=== PATIENT | female | born 1995 | race Two or more races ===

== ENCOUNTER 2022-02-19 10:25 | Emergency (ER) | payer SELFPAY ==
[2022-02-19] MEDS ORDERED: Albuterol/Ipratropium 3.0-0.5 MG/3 ML Neb Soln NEB ONE (11:28)
[2022-02-19 11:46] LABS: CORONAVIRUS COVID-19 NAA NEGATIVE (NEGATIVE); INFLUENZA A NAA NEGATIVE (NEGATIVE); INFLUENZA B NAA NEGATIVE (NEGATIVE)
== END 2022-02-19 12:30 | disposition home or self-care (01) ==
LOC: MW.ED 10:25
DX: J40 Bronchitis, not specified as acute or chronic (principal); Z88.0 Allergy status to penicillin; Z88.8 Allergy status to other drugs, medicaments and biological substances; Z79.899 Other long term (current) drug therapy; Z20.822 Contact with and (suspected) exposure to COVID-19
CPT/HCPCS: 0240U; 71046; 81003; 81025; 93005; 99285; 93010; 99284; J7620-GY

== ENCOUNTER 2024-04-24 08:53 | Emergency (ER) | payer MEDICAID ==
[2024-04-24] MEDS ORDERED: Bacitracin Oint 1 GM U/D Packet TOP ONE (09:18)
[2024-04-24] MEDS: Bacitracin Oint 28.35 GM Tube TOP STA (09:38)
[2024-04-24] MEDS: Bacitracin Oint 28.35 GM Tube ONE (09:38)
== END 2024-04-24 09:44 | disposition home or self-care (01) ==
LOC: MW.ED 08:53
DX: T25.221A Burn of second degree of right foot, initial encounter (principal); F17.210 Nicotine dependence, cigarettes, uncomplicated; Z88.0 Allergy status to penicillin; Z88.8 Allergy status to other drugs, medicaments and biological substances; Z90.49 Acquired absence of other specified parts of digestive tract; X12.XXXA Contact with other hot fluids, initial encounter
CPT/HCPCS: 99283; A9270